=== PATIENT | female | born 1975 | race Caucasian/White ===

== ENCOUNTER → 2017-10-11 | Outpatient (CLI) | payer OTHER ==
[~2017-10-11] MED LIST: NORCO 5-325 TA1 EACH PO
[2017-10-11 12:12] LABS: ABSOLUTE BASOPHILS 0.2 thou/uL (0.0-0.2); ABSOLUTE EOSINOPHILS 0.1 thou/uL (0.0-0.7); ABSOLUTE MONOCYTES 0.4 thou/uL (0.0-1.2); ABSOLUTE NEUTROPHILS 3.5 thou/uL (1.6-8.1); BASOPHILS 2.4 %; EOSINOPHILS 1.6 %; HEMATOCRIT 36.9 % (37.0-47.0); HEMOGLOBIN 12.1 gm/dL (12.0-15.0); LYMPHOCYTES 33.3 %; MCH 24.7 pg (26.0-34.0); MCHC 32.7 g/dL (28.0-37.0); MCV 75.5 fL (80.0-100.0); MONOCYTES 6.2 %; MPV 7.9 fl. (7.2-11.1); NUCLEATED RBCS 0 /100WBC; PLATELET COUNT* 331 thou/uL (150-400); POLYS 56.5 %; RBC 4.89 mil/uL (4.20-5.00); RDW-CV 14.8 % (10.5-14.5); WBC 6.1 thou/uL (4.0-11.0)
[2017-10-11 12:37] LABS: ALKALINE PHOSPHATASE 52 U/L (46-116); ANION GAP 7 mmol/L (7-16); BUN 12 mg/dL (7-18); CALCIUM 8.7 mg/dL (8.5-10.1); CHLORIDE 105 mmol/L (98-107); CHOLESTEROL 177 mg/dL (<200); CO2 27 mmol/L (21-32); CREATININE 0.7 mg/dL (0.6-1.3); GLUCOSE 100 mg/dL (70-99); HDL CHOLESTEROL 63 mg/dL (>40); LDL CHOLESTEROL 101 mg/dL (<100); POTASSIUM 4.4 mmol/L (3.5-5.1); SGOT 12 U/L (15-37); SGPT 17 U/L (30-65); SODIUM 139 mmol/L (136-145); TC:HDL 2.8 Ratio (Not establshd); TOTAL BILIRUBIN 0.6 mg/dL (<0.1-1.0); TOTAL PROTEIN 7.8 g/dL (6.4-8.2); TRIGLYCERIDE 68 mg/dL (<150); VLDL 14 mg/dL (<40)
[2017-10-11 12:39] LABS: SERUM ASSESSMENT Clear
[2017-10-13 09:25] LABS: % SATURATION 56 % (20-39); IRON 204 ug/dL (50-175)
== END ==
LOC: M.ULTRA 07:27
PROVIDERS: Family Medicine
DX: R10.11 Right upper quadrant pain (principal); N91.1 Secondary amenorrhea

== ENCOUNTER → 2017-11-18 | Day surgery (SDC) | payer OTHER ==
[2017-11-18 12:16] LABS: ABSOLUTE BASOPHILS 0.1 thou/uL (0.0-0.2); ABSOLUTE EOSINOPHILS 0.2 thou/uL (0.0-0.7); ABSOLUTE LYMPHOCYTES 1.9 thou/uL (0.8-5.3); ABSOLUTE MONOCYTES 0.5 thou/uL (0.0-1.2); ABSOLUTE NEUTROPHILS 3.4 thou/uL (1.6-8.1); BASOPHILS 1.4 %; EOSINOPHILS 2.6 %; HEMATOCRIT 37.7 % (37.0-47.0); HEMOGLOBIN 12.2 gm/dL (12.0-15.0); LYMPHOCYTES 32.2 %; MCH 24.6 pg (26.0-34.0); MCHC 32.3 g/dL (28.0-37.0); MCV 76.1 fL (80.0-100.0); MONOCYTES 7.5 %; MPV 7.8 fl. (7.2-11.1); NUCLEATED RBCS 0 /100WBC; PLATELET COUNT* 350 thou/uL (150-400); POLYS 56.3 %; RBC 4.95 mil/uL (4.20-5.00); RDW-CV 15.2 % (10.5-14.5)
[2017-11-18 12:20] LABS: CALCIUM 8.2 mg/dL (8.5-10.1); CREATININE 0.7 mg/dL (0.6-1.3); POTASSIUM 4.1 mmol/L (3.5-5.1)
[2017-11-18 12:25] LABS: ALBUMIN 3.9 g/dL (3.4-5.0); TOTAL BILIRUBIN 0.5 mg/dL (<0.1-1.0); TOTAL PROTEIN 7.7 g/dL (6.4-8.2)
--- NOTE | 2017-11-19 09:23 | OP ---
[address] [address] OPERATIVE REPORT Name: AMANDA ALLEN Room: [facility]#: [id number] Admission: 11/18/17 Attend Phys: Concepcion Oliver DO Discharge: Date of : 79 Report #: [id number] THIS REPORT FOR: //name// CC: Concepcion Olivares DATE OF SERVICE: 11/18/2017 PREPROCEDURE DIAGNOSIS: Biliary colic. POSTPROCEDURE DIAGNOSIS: Chronic cholecystitis. FINDINGS: Hugely distended thick-walled gallbladder. SURGEON: Concepcion Oliver DO. COSURGEON: Meera Zambrano, PGY-1. ELECTRICAL PANEL BUILDER: IAN Woods. PROCEDURE PERFORMED: Micro-laparoscopic cholecystectomy. ANESTHESIA: General endotracheal and local. ESTIMATED BLOOD LOSS: 3 mL. DRAINS: None. SPECIMENS: Gallbladder. CONDITION: Stable. COMPLICATIONS: None. DISPOSITION: PACU to home. HISTORY OF PRESENT ILLNESS: The patient is a very pleasant 42-year-old female who presented to my office with complaint of intermittent epigastric and right-sided abdominal pain. She had undergone an ultrasound, which did show multiple gallstones and sludge. She was then consented for a micro-laparoscopic cholecystectomy. Risks discussed included bleeding, infection, pain, scar formation, injury to bowel, liver or bile duct, hernia at the incision sites, need for an open procedure and risks of general anesthesia. The patient understood these risks and elected to proceed. DESCRIPTION OF PROCEDURE: The patient was brought to the operating room. She [facility] [address] [place] [address] OPERATIVE REPORT Name: AMANDA ALLEN Room: [facility].#: [id number] Admission: 11/18/17 Attend Phys: Concepcion Oliver DO Discharge: Date of : 79 Report #: [id number] was laid supine on the operating room table. SCDs were placed on bilateral lower extremities. Ancef was given in the perioperative period. General endotracheal anesthesia was induced by anesthesia without difficulty. Abdomen was prepped and draped in standard sterile fashion. Timeout was performed to verify patient and procedure. A 10 mL of 0.5% Marcaine were injected in the infraumbilical area. Curvilinear incision was made with 11 blade. Cautery was used for hemostasis. S retractors were used to visualize the fascia. Fascia was grasped and elevated between 2 Kochers. The fascia was incised using cautery. Peritoneum was bluntly entered using a Azalea clamp. Finger was introduced into the abdomen to assure that there were no christos-incisional adhesions, none were identified. Two stitches of 0 Vicryl placed on the fascia. Kyle trocar was introduced and secured with 0 Vicryl stitches. Abdomen was insufflated. The patient was placed head up and tilted left side down. Camera was introduced and a brief anterior abdominal exploration was undertaken with findings of a hugely distended gallbladder, stomach was also quite distended. Anesthesia did introduce an OG tube with excellent decompression of the stomach. A 5-mm trocar was introduced in the subxiphoid area as well as two 3-mm trocars in the right upper quadrant, all under direct visualization. Gallbladder was grasped and raised towards the patient's head. Peritoneum overlying the triangle of Calot was incised using cautery. Both duct and artery were then easily visualized both were circumferentially dissected free using a [place] dissector. Common bile duct could clearly be seen below this. Any tissues posterior to the artery were removed. This then afforded the critical view. Duct and artery were both doubly clipped and ligated. Gallbladder was then removed from the liver bed utilizing cautery with no further difficulty. Specimen was placed within an EndoCatch bag. Liver bed was inspected. It was hemostatic. Clips were inspected. They were intact. There was no bleeding or leakage noted from the area of the clips. Trocars were then removed under direct visualization. There was no bleeding noted from the peritoneum. Abdomen was then completely desufflated. Kyle trocar was removed and EndoCatch bag was removed after extending the skin incision due to the excessive size of the gallbladder. Specimen was then handed off for permanent pathology. Kochers were placed on the fascia of the infraumbilical port. Previously placed 0 Vicryl stitch was removed and a #0 Vicryl stitch was placed in [id number] fashion with excellent approximation of the fascia. An additional 10 mL of 0.5% Marcaine were injected in the fascia. All wounds were then closed with 4-0 Monocryl. A total of 30 mL of 0.5% Marcaine were injected. Wounds were then cleansed and covered with Mastisol, Steri-Strips, 4 x 4's, and a Tegaderm. The patient was then allowed to awaken from anesthesia, was extubated and transported to the recovery room with no further difficulties. Counts were correct x 2 at the conclusion of the case. <ELECTRONICALLY SIGNED> By: Concepcion Oliver DO 11/19/17 0923 [id number] Oliver DO /nt
== END | disposition home or self-care (01) ==
LOC: M.SUR 07:12
PROVIDERS: Surgery
DX: K81.1 Chronic cholecystitis (principal)

== ENCOUNTER → 2019-07-17 | Outpatient (CLI) | payer OTHER | LOC: M.RAD 11:10 | DX: Z12.31 Encounter for screening mammogram for malignant neoplasm of breast (principal) ==

== ENCOUNTER → 2021-01-24 | Outpatient (CLI) | payer OTHER | LOC: M.RAD 08:58 | PROVIDERS: ATTEND Family Medicine | DX: Z12.31 Encounter for screening mammogram for malignant neoplasm of breast (principal) ==